=== PATIENT | male | born 1975 | race Caucasian/White ===

== ENCOUNTER 2018-01-05 12:52 | Emergency (ER) | payer MEDICARE, MEDICAID ==
[2018-01-05 13:05] VITALS: BP 143/70
--- NOTE | 2018-01-05 13:07 | UC ---
Abdominal Pain Male HPI - HPI Summary HPI Summary: Pt presents with generalized abdominal pain that began about 6 hours ago. He tells me that he was in his usual state of health - woke up this morning and was getting ready to take his to work, but noticed some generalized abdominal pain. Had four episodes of vomiting and some loose stools. No other symptoms. Denies fever, chills, cough, SOB, chest pain, dysuria, or recent illness. - History of Current Complaint Chief Complaint: UCAbdominalPain Stated Complaint: STOMACH PAIN Time Seen by Provider: 01/05/18 13:07 Hx Obtained From: Patient Onset/Duration: Sudden Onset Severity Initially: Moderate Severity Currently: Moderate Pain Intensity: 7 Pain Scale Used: 0-10 Numeric Location: Diffuse - Allergies/Home Medications Allergies/Adverse Reactions: Allergies Allergy/AdvReac Type Severity Reaction Status Date / Time No Known Allergies Allergy Verified 01/05/18 13:05 PMH/Surg Hx/FS Hx/Imm Hx - Additional Past Medical History Additional PMH: Cerebral palsy Cardiovascular History: Hypertension GI/ History: Gastroesophageal Reflux - Surgical History Surgical History: Unable to Obtain/Confirm Surgery Procedure, Year, and Place: multiple flexor muscle releases; EAR TUBES MULTIPLE TIMES; LT SHOULDER; HERNIA X2 - Social History Lives: With Family Alcohol Use: Rare Substance Use Type: None Smoking Status (MU): Heavy Every Day Tobacco Smoker Review of Systems Constitutional: Negative Skin: Negative Eyes: Negative ENT: Negative Respiratory: Negative Cardiovascular: Negative Gastrointestinal: Abdominal Pain, Vomiting, Diarrhea Genitourinary: Negative Neurological: Negative Psychological: Negative All Other Systems Reviewed And Are Negative: Yes Physical Exam - Summary Physical Exam Summary: GENERAL: NAD. WDWN. No pain distress. SKIN: No rashes, sores, ulcers, masses, lesions. NECK: Supple. Nontender. No lymphadenopathy. CHEST: CTAB. No r/r/w. No accessory muscle use. Breathing comfortably and in no distress. CV: RRR. Without m/r/g. Pulses intact. Brisk cap refill. ABDOMEN: Mild tenderness generalized. Soft. No distention or guarding. No organomegaly. No CVA tenderness. Bowel sounds present x4. NEURO: Alert. CN II-XII grossly intact. PSYCH: Age appropriate behavior. Triage Information Reviewed: Yes Vital Signs: Initial Vital Signs Temp 98.0 F 01/05/18 13:02 Pulse 62 03/17/18 13:02 Resp 18 01/05/18 13:02 BP 143/70 01/05/18 13:02 Pulse Ox 95 01/05/18 13:02 Abd Pain Male Course/Dx - Course Course Of Treatment: Suspect gastroenteritis. Will provide him with Zofran and advise to rest and drink clear fluids. Advance BRAT diet as tolerated. - Differential Dx/Clinical Impression Provider Diagnoses: Gastroenteritis Discharge - Discharge Plan Condition: Stable Disposition: HOME Prescriptions: Ondansetron ODT TAB* [Zofran 4 MG Odt TAB*] 4 mg PO Q6H PRN #12 tab.odt PRN Reason: Vomiting Patient Education Materials: Gastroenteritis (ED) Referrals: Ashley Leon MD [Primary Care Provider] - Additional Instructions: If you develop a fever, shortness of breath, chest pain, new or worsening symptoms - please call your PCP or go to the ED. Your blood pressure was high at todays visit. Please see your primary provider within 4 weeks for recheck and re-evaluation. 1) If your abdominal pain worsens or if you develop a fever - please go to the Emergency Room for further evaluation.
== END 2018-01-05 13:20 | disposition home or self-care (01) ==
LOC: UCEAST 12:52
DX: K52.9 Noninfective gastroenteritis and colitis, unspecified (principal); F17.200 Nicotine dependence, unspecified, uncomplicated
CPT/HCPCS: 99212; G0463

== ENCOUNTER 2018-12-05 12:25 | Emergency (ER) | payer MEDICARE, MEDICAID | END 2018-12-05 13:30 | disposition left against medical advice (07) | LOC: UCEAST 12:25 | DX: Z53.21 Procedure and treatment not carried out due to patient leaving prior to being seen by health care provider (principal) ==

== ENCOUNTER 2019-01-04 09:39 | Emergency (ER) | payer MEDICARE, MEDICAID ==
[2019-01-04 10:53] VITALS: BP 135/71
--- NOTE | 2019-01-04 11:20 | UC ---
Shoulder Pain HPI - HPI Summary HPI Summary: 43 y/o male presents to the urgent care c/o worsening left shoulder pain radiating to elbow for the past 2 days. pt reports he has Hx of Cerebral Palsy and he uses crutches to ambulate, thus sometimes he develops shoulder pain. 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 Pt also has Hx of left rotator cuff tear repair about 7 years ago. Pt states in the past 2 days he has noticed pain is more constant. Pain today is 6/10 w/ certain movements, specially raising his arm. Pt denies any numbness or tingling sensation or left arm, SOB, chest pain, abdominal pain , N/V/D. He took Ibuprofen 800mg PO this morning to alleviate symptoms. - History of Current Complaint Chief Complaint: UCUpperExtremity Stated Complaint: SHOULDER/ARM INJURY Time Seen by Provider: 01/04/19 11:00 Hx Obtained From: Patient Onset/Duration: Gradual Onset, Lasting Weeks - many years Hx Roator cuff tear repair of left shoulder 7 years ago. Pt uses crutches to ambulate since Hx of Cerebral palsy, Still Present, Worse Since - 1 week Timing: Constant Severity Initially: Mild Severity Currently: Moderate Location Of Pain: Is Discrete @ - left shoulder, Radiates To - left elbow Pain Intensity: 7 Pain Scale Used: 0-10 Numeric Character: Sharp Aggravating Factor(s): Movement, Lifting, Abduction Alleviating Factor(s): Rest, OTC Meds - ibuprofen Associated Signs And Symptoms: Positive: Numbness/Tingling - mild at times. Negative: Swelling, Redness, Bruising, Fever, Weakness Related History: Dominant Hand Left - Risk Factors Non-Orthopedic Risk Factor: Negative DVT Risk Factors: Negative Septic Arthritis Risk Factor: Negative - Allergies/Home Medications Allergies/Adverse Reactions: Allergies Allergy/AdvReac Type Severity Reaction Status Date / Time No Known Allergies Allergy Verified 01/04/19 10:53 PMH/Surg Hx/FS Hx/Imm Hx Previously Healthy: Yes Cardiovascular History: Hypertension - diet control Other Neurological History: Cerebral palsy - Surgical History Surgical History: Unable to Obtain/Confirm Surgery Procedure, Year, and Place: multiple flexor muscle releases; EAR TUBES MULTIPLE TIMES; LT SHOULDER; HERNIA X2 - Family History Known Family History: Positive: Cardiac Disease, Hypertension, Diabetes - Social History Occupation: Employed Full-time Lives: With Family Alcohol Use: Rare Substance Use Type: None Smoking Status (MU): Heavy Every Day Tobacco Smoker Review of Systems All Other Systems Reviewed And Are Negative: Yes Constitutional: Positive: Negative Skin: Positive: Negative Eyes: Positive: Negative ENT: Positive: Negative Respiratory: Positive: Negative Cardiovascular: Positive: Negative Gastrointestinal: Positive: Negative Genitourinary: Positive: Negative Motor: Positive: Negative Neurovascular: Positive: Negative Musculoskeletal: Positive: Decreased ROM - left shoulder, Other: - left shoulder pain radiating to left elbow Neurological: Positive: Numbness - mild at times when he uses too much the crutches or at wrk when he works many hrs as credit cashier Psychological: Positive: Negative Is Patient Immunocompromised?: No Physical Exam - Summary Physical Exam Summary: Vital Signs Reviewed: Yes GENERAL: Pt w/ PMHX of cerebral palsy Well-Appearing, Well-Nourished handicapped male w/o any apparent pain distress. Pt uses crutches to ambulate Eyes: Positive: Conjunctiva Clear - PERRL,EOMI ENT: Positive: Normal ENT inspection, Hearing grossly normal, Pharyngeal erythema - mild, Nasal drainage - clear, Uvula midline. Left external ear canal impacted w/ cerumen unable to visualize TM, RT external canal clear, Rt TM injected w/ erythema and mild yellowish drainage. Neck: Positive: Supple, Nontender, No Lymphadenopathy Respiratory: Positive: Chest non-tender, Lungs clear, Normal breath sounds, No respiratory distress Cardiovascular: Positive: RRR, No Murmur, Pulses Normal, Brisk Capillary Refill Abdomen Description: Positive: Nontender, No Organomegaly, Soft. Negative: CVA Tenderness (R), CVA Tenderness (L) Bowel Sounds: Positive: Present Musculoskeletal: LF shoulder: The L shoulder is without obvious asymmetry or deformity when compared to the R shoulder. posterior shoulder w/ ecchymosis and bruising, no crepitus. No bony deformity or prominence of humeral head. No erythema, warmth. No Point Tenderness to palpation over the clavicle, or scapula. positive tenderness over Acromioclavicular joint and humeral head with mild swelling, NT to palpation of the bicipital groove . NT to palpation of the muscles of the sternocleidomastoid, pectoralis, biceps/triceps , deltoid, trapezius, . Limited ROM due to pain especially in adduction and abduction.on both passive and active, internal/external rotation, flexion/ extension. "empty can and drop arm test unable to perform due to pain. No axillary tenderness or lymphadenopathy. Normal sensation over the deltoid and fingers. Distal motor and neurovascular status is intact. The L elbow is with mild deformity on the lateral side when compared to the R elbow. No obvious surface trauma, ecchymosis, mild soft tissue swelling. Point tenderness to palpation of the lateral or medial epicondyle, olecranon,and radial head. No epicondylar or axillary lymphadenopathy. Decreased ROM due to pain. Neurological Exam: Normal Psychological Exam: Normal Skin Exam: Normal Triage Information Reviewed: Yes Vital Signs: Initial Vital Signs Temp 98 F 01/04/19 10:48 Pulse 90 01/04/19 10:48 Resp 18 01/04/19 10:48 BP 135/71 01/04/19 10:48 Pulse Ox 100 01/04/19 10:48 Shoulder Course/Dx - Course Course Of Treatment: 43 y/o male presents to the urgent care c/o worsening left shoulder pain radiating to elbow for the past 2 days. pt reports he has Hx of Cerebral Palsy and he uses crutches to ambulate, thus sometimes he develops shoulder pain. 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 Pt also has Hx of left rotator cuff tear repair about 7 years ago. Pt states in the past 2 days he has noticed pain is more constant. Pain today is 6/10 w/ certain movements, specially raising his arm. Pt denies any numbness or tingling sensation or left arm, SOB, chest pain, abdominal pain , N/V/D. He took Ibuprofen 800mg PO this morning to alleviate symptoms. Hx obtained. Pt w/ Rt otitis media and left cerumen impaction unable to obser LF TM on examination, LF ear irrigation ordered and performed by Nurse. Pt tolerated well procedure and LF TM injected w/ erythema and mild yellowish drainage. Pt w/ B/L otitis Media. LF shoulder and left elbow X-ray ordered: Impression: No acute fracture or dislocation of left shoulder or left elbow as per radiologist. Pt Rx Amoxicillin PO for B/L otitis Media and Ibuprofen for left shoulder and elbow tendonitis. Pt'w left elbow immobilized w/ Víctor bandage. Advised to f/u with Orthopedic DR Bartlett referral if not improvement of symptoms.D/c instructions explained. Pt understood and agreed w/ plan of care. - Differential Dx/Diagnosis Differential Diagnosis/HQI/PQRI: Arthritis, Contusion, Rotator Cuff Injury, Sprain, Strain, Tendonitis, Other - otitis media, exxterna cerumen impaction Provider Diagnosis: Left elbow tendonitis, Left shoulder tendonitis, Bilateral otitis media, Left ear impacted cerumen Discharge - Sign-Out/Discharge Documenting (check all that apply): Patient Departure - d/c home All imaging exams completed and their final reports reviewed: Yes - Discharge Plan Condition: Stable Disposition: HOME Prescriptions: Amoxicillin PO (*) [Amoxicillin 875 MG (*)] 875 mg PO BID #20 tab Ibuprofen TAB* [Motrin TAB* 600 MG] 600 mg PO Q6H PRN #30 tab PRN Reason: Pain Patient Education Materials: Cerumen Impaction (ED), Ear Infection (ED), Tendinitis (ED) Forms: *Work Release Referrals: Bang Bartlett MD [Medical Doctor] - 1 Week Ashley Leon MD [Primary Care Provider] - 1 Week Additional Instructions: 1-Please take Ibuprofen PO q6-8hrs prn after meals as directed to alleviate pain and swelling. 2-Please apply ice, keep your elbow immobilized with the víctor-bandage. Please f/ u w/ Orthopedic Dr Bartlett if not improvement of symptoms for further evaluation and treatment. 3- Please take Amoxicillin PO as directed to alleviate ear infection. Please f/ u w/ ENT Dr Wyatt in 1 week if not improvement of symptoms - Billing Disposition and Condition Condition: STABLE Disposition: Home
== END 2019-01-04 13:05 | disposition home or self-care (01) ==
LOC: UCEAST 09:39
DX: M77.8 Other enthesopathies, not elsewhere classified (principal); H66.93 Otitis media, unspecified, bilateral; H61.22 Impacted cerumen, left ear; F17.200 Nicotine dependence, unspecified, uncomplicated; I10 Essential (primary) hypertension
CPT/HCPCS: 99213; G0463

== ENCOUNTER 2019-06-06 09:37 | Emergency (ER) | payer MEDICARE, MEDICAID ==
[2019-06-06 10:22] VITALS: BP 126/65
--- NOTE | 2019-06-06 10:56 | UC ---
Ear Complaint HPI - HPI Summary HPI Summary: 44-year-old male comes in with a chief complaint of right ear pain and drainage and feeling ill. Patient felt ill last night. This morning he had drainage from the ear ear pain. Tells me he gets recurrent ear infections. He's had ear tubes in the past. No recent swimming. Pain was worse this morning than he took ibuprofen which did help with the pain. - History of Current Complaint Chief Complaint: UCEar Stated Complaint: HEADACHE/EARPAIN Time Seen by Provider: 06/06/19 10:32 Pain Intensity: 5 - Allergies/Home Medications Allergies/Adverse Reactions: Allergies Allergy/AdvReac Type Severity Reaction Status Date / Time No Known Allergies Allergy Verified 06/06/19 10:22 PMH/Surg Hx/FS Hx/Imm Hx Previously Healthy: Yes - CEREBRAL PALSY - Surgical History Surgical History: Unable to Obtain/Confirm Surgery Procedure, Year, and Place: multiple flexor muscle releases; EAR TUBES MULTIPLE TIMES; LT SHOULDER; HERNIA X2 - Family History Known Family History: Positive: Cardiac Disease, Hypertension, Diabetes - Social History Alcohol Use: Rare Substance Use Type: None Smoking Status (MU): Heavy Every Day Tobacco Smoker Review of Systems All Other Systems Reviewed And Are Negative: Yes Constitutional: Positive: Other - SEE HPI Skin: Positive: Negative Eyes: Positive: Negative ENT: Positive: Ear Ache, Nasal Discharge Respiratory: Positive: Negative Cardiovascular: Positive: Negative Gastrointestinal: Positive: Negative Motor: Positive: Negative Neurovascular: Positive: Negative Musculoskeletal: Positive: Negative Neurological: Positive: Negative Psychological: Positive: Negative Is Patient Immunocompromised?: No Physical Exam Triage Information Reviewed: Yes Appearance: Well-Appearing, No Pain Distress, Well-Nourished Vital Signs: Initial Vital Signs Temp 98.6 F 06/06/19 10:20 Pulse 71 06/06/19 10:20 Resp 17 06/06/19 10:20 BP 126/65 06/06/19 10:20 Pulse Ox 100 06/06/19 10:20 Vital Signs Reviewed: Yes Eye Exam: Normal Eyes: Positive: Conjunctiva Clear ENT: Positive: Pharyngeal erythema, Nasal congestion, Nasal drainage, TM red - RT, Other - Debris in the right ear canal Neck: Positive: Supple Respiratory: Positive: Lungs clear, Normal breath sounds, No respiratory distress Cardiovascular: Positive: RRR Musculoskeletal: Positive: Other: - Patient has cerebral palsy and he does have some decreased range of motion that's chronic in the legs Neurological: Positive: Alert Psychological: Positive: Age Appropriate Behavior Skin Exam: Normal Ear Complaint Course/Dx - Course Course Of Treatment: DISCUSSED VIRAL VERSES BACTERIAL INFECTION AND THE ROLE OF ANTIBIOTICS. THE PATIENT PREFERS TO BE ON ANTIBIOTICS AT THIS TIME. - Differential Dx/Diagnosis Provider Diagnosis: Right serous otitis media, Right otitis externa Discharge - Sign-Out/Discharge Documenting (check all that apply): Patient Departure All imaging exams completed and their final reports reviewed: No Studies - Discharge Plan Condition: Stable Disposition: HOME Prescriptions: Amoxicillin PO (*) [Amoxicillin 875 MG (*)] 875 mg PO BID #20 tab Ofloxacin 0.3% (Ear Drop)* [Floxin 0.3% OTIC.BRE (Ear Drop)] 5 drop RIGHT EAR BID #1 btl Patient Education Materials: Otitis Externa (ED), Serous Otitis Media (ED) Forms: *Work Release Referrals: Ashley Leon MD [Primary Care Provider] - Additional Instructions: FOLLOW UP WITH YOUR DOCTOR IF NOT COMPLETELY IMPROVED. GET RECHECKED SOONER IF YOUR CONDITION WORSENS OR ANY QUESTIONS OR CONCERNS. - Billing Disposition and Condition Condition: STABLE Disposition: Home
== END 2019-06-06 11:03 | disposition home or self-care (01) ==
LOC: UCEAST 09:37
DX: H66.91 Otitis media, unspecified, right ear (principal); H60.91 Unspecified otitis externa, right ear; G80.9 Cerebral palsy, unspecified; F17.210 Nicotine dependence, cigarettes, uncomplicated
CPT/HCPCS: 99212; G0463

== ENCOUNTER 2023-11-23 22:26 | Inpatient (IN) ==
[2023-11-24 00:30] LABS: ABS Lymphocytes 0.4 10^3/uL (1.0-4.8); ABS Monocytes 0.7 10^3/uL (0.0-1.1); ABS Neutrophils 15.6 10^3/uL (1.5-7.6); ABS Nucleated RBC 0.01 10^3/ul; Hematocrit 49.5 % (38-53); Hemoglobin 16.6 g/dL (13.2-16.3); Lymphocyte % 2.6 %; Mean Corpuscular Hemoglobin 29.4 pg (27-33); Mean Corpuscular Hgb Conc 33.6 g/dL (31-36); Mean Corpuscular Volume 87.7 fL (80-97); Mean Platelet Volume 8.2 fL (7.5-11.2); Platelet Count 240 10^3/uL (150-450); Red Blood Count 5.64 10^6/uL (4.06-5.63); Red Cell Distribution Width 14.5 % (12-17); White Blood Count 16.7 10^3/uL (3.6-10.2)
[2023-11-24 00:44] LABS: Albumin 4.3 g/dL (3.2-5.2); Albumin/Globulin Ratio 1.2 (1-3); C Reactive Protein 249.87 mg/L (<8.01); Calcium 9.8 mg/dL (8.6-10.3); Creatinine, Serum 1.44 mg/dL (0.67-1.17); Globulin 3.6 g/dL (2-4); Total Protein 7.9 g/dL (6.4-8.9); eGFR CKD-EPI 60.3 (>60)
[2023-11-24] MEDS: cefTRIAXone 2 gm/50 mL D5W 2 GM/50 ML BAG IV ONE (01:03)
[2023-11-24] MEDS ORDERED: Acetaminophen IV 1 GM/100ML 1,000 MG/100 ML BAG IV SCH (02:15)
[2023-11-24] MEDS: Lactated Ringers SEPSIS* BAG 1,780 ML IV ONE (03:44)
[2023-11-24] MEDS: Lactated Ringers 1000 ml BAG 1,000 ML IV ONE ×2 (03:53→06:26)
[2023-11-24] MEDS ORDERED: Nicotine Lozenge mini 2 MG LOZNG.MINI MT PRN (04:18)
[2023-11-24] MEDS: Iodixanol (CONTRAST) 320 MG/ML 100 ML SDV IV ONE (04:52)
[2023-11-24] MEDS: Enoxaparin 40 MG/0.4 ML SYR SUBCUT SCH (06:25)
[2023-11-24 06:26] LABS: ABS Lymphocytes 0.9 10^3/uL (1.0-4.8); ABS Neutrophils 16.6 10^3/uL (1.5-7.6); Hematocrit 40.5 % (38-53); Hemoglobin 13.7 g/dL (13.2-16.3); Lymphocyte % 4.6 %; Mean Corpuscular Hemoglobin 29.4 pg (27-33); Mean Corpuscular Hgb Conc 33.9 g/dL (31-36); Mean Corpuscular Volume 86.7 fL (80-97); Mean Platelet Volume 8.5 fL (7.5-11.2); Platelet Count 192 10^3/uL (150-450); Red Blood Count 4.68 10^6/uL (4.06-5.63); Red Cell Distribution Width 14.7 % (12-17); White Blood Count 18.5 10^3/uL (3.6-10.2)
[2023-11-24 06:41] LABS: Calcium 8.4 mg/dL (8.6-10.3); Creatinine, Serum 1.24 mg/dL (0.67-1.17); Magnesium 1.3 mg/dL (1.9-2.7); Potassium 4.1 mmol/L (3.5-5.0); eGFR CKD-EPI 72.2 (>60)
[2023-11-24] MEDS: Polyethylene Glycol 3350 17 GM PACKET PO SCH (07:38)
[2023-11-24] MEDS: Nicotine PATCH 14 MG/24 HR PATCH TRANSDERM SCH (07:38)
[2023-11-24] MEDS: Magnesium Sulf 4 GM/100 ML IV 4,000 MG/100 ML BAG IVPB ONE ×2 (08:07→17:51)
[2023-11-24 10:25] LABS: Urine Appearance Clear; Urine Bilirubin Negative (Negative); Urine Blood Negative (Negative); Urine Color Amber; Urine Glucose Negative (Negative); Urine Ketones Trace (Negative); Urine Nitrite Negative (Negative); Urine Protein 2+(100 mg/dL) (Negative); Urine Urobilinogen Negative (Negative)
[2023-11-24 10:40] LABS: Urine Bacteria 1+ (Absent); Urine Red Blood Cell 1+(3-5/hpf) (Absent); Urine Squamous Epithelial Cell Present (Absent); Urine White Blood Cell Trace(0-5/hpf) (Absent)
[2023-11-24 10:45] LABS: Urine Specific Gravity > 1.060 (1.002-1.030)
[2023-11-24] MEDS: Acetaminophen IV 1 GM/100ML 1,000 MG/100 ML BAG IV SCH (15:37)
[2023-11-24] MEDS: Senna TAB 8.6 mg TAB PO SCH (21:46)
[2023-11-25] MEDS: cefTRIAXone 1 gm/50 mL D5W 1 GM/50 ML BAG IV SCH (01:27)
[2023-11-25 06:19] LABS: Hematocrit 37.8 % (38-53); Hemoglobin 12.7 g/dL (13.2-16.3); Mean Corpuscular Hemoglobin 29.3 pg (27-33); Mean Corpuscular Hgb Conc 33.7 g/dL (31-36); Mean Corpuscular Volume 86.9 fL (80-97); Platelet Count 172 10^3/uL (150-450); Red Blood Count 4.35 10^6/uL (4.06-5.63); Red Cell Distribution Width 14.7 % (12-17); White Blood Count 17.5 10^3/uL (3.6-10.2)
[2023-11-25 06:30] LABS: Calcium 8.2 mg/dL (8.6-10.3); Creatinine, Serum 1.11 mg/dL (0.67-1.17); Magnesium 2.4 mg/dL (1.9-2.7); Potassium 3.9 mmol/L (3.5-5.0); eGFR CKD-EPI 82.4 (>60)
[2023-11-25] MEDS: Morphine 2 MG/ML SYRINGE IV PRN (14:52)
[2023-11-26 05:58] LABS: Hematocrit 35.8 % (38-53); Hemoglobin 12.1 g/dL (13.2-16.3); Mean Corpuscular Hemoglobin 29.6 pg (27-33); Mean Corpuscular Volume 87.1 fL (80-97); Mean Platelet Volume 8.6 fL (7.5-11.2); Platelet Count 189 10^3/uL (150-450); Red Blood Count 4.11 10^6/uL (4.06-5.63); Red Cell Distribution Width 14.8 % (12-17); White Blood Count 14.8 10^3/uL (3.6-10.2)
[2023-11-26] MEDS: cefTRIAXone 1 GM Q24H (ADVAN) IVPB SCH (06:02)
[2023-11-26 06:14] LABS: C Reactive Protein 257.79 mg/L (<8.01); Calcium 8.4 mg/dL (8.6-10.3); Creatinine, Serum 1.03 mg/dL (0.67-1.17); eGFR CKD-EPI 90.2 (>60)
[2023-11-26] MEDS: ceFAZolin 2 GM in NS PREMIX 2 GM/100 ML BAG IVPB SCH (17:32)
[2023-11-27 05:44] LABS: Hematocrit 35.8 % (38-53); Hemoglobin 12.1 g/dL (13.2-16.3); Mean Corpuscular Hemoglobin 29.3 pg (27-33); Mean Corpuscular Hgb Conc 33.7 g/dL (31-36); Mean Platelet Volume 8.3 fL (7.5-11.2); Platelet Count 242 10^3/uL (150-450); Red Blood Count 4.11 10^6/uL (4.06-5.63); Red Cell Distribution Width 15.1 % (12-17); White Blood Count 13.8 10^3/uL (3.6-10.2)
[2023-11-27 06:01] LABS: Calcium 8.3 mg/dL (8.6-10.3); Creatinine, Serum 0.96 mg/dL (0.67-1.17); Magnesium 1.8 mg/dL (1.9-2.7); Potassium 4.1 mmol/L (3.5-5.0); eGFR CKD-EPI 98.1 (>60)
[2023-11-27] MEDS: Magnesium Sulfate 2 gm BAG 2 GM/50 ML BAG IVPB ONE (09:44)
[2023-11-27 14:48] VITALS: BP 132/67
== END 2023-11-27 16:32 | disposition home or self-care (01) | DRG 872 ==
LOC: ED 22:26 → EDHOLD 22:26 → SUATTDRO 11-24 02:03 → SSU 11-24 07:25
PROVIDERS: ADMIT Internal Medicine; ATTEND Internal Medicine